=== PATIENT | female | born 1990 | race Caucasian/White ===

== ENCOUNTER 2023-11-11 21:15 | Emergency (ER) | payer MEDICAID, SELFPAY ==
--- NOTE | 2023-11-11 | ECG_ITS ---
Test Reason : chest pain Blood Pressure : / mmHG Vent. Rate : 076 BPM Atrial Rate : 076 BPM P-R Int : 148 ms QRS Dur : 082 ms QT Int : 370 ms P-R-T Axes : 058 048 038 degrees QTc Int : 416 ms Normal sinus rhythm Normal ECG No previous ECGs available Referred By: Generic ED Physician Electronically Signed By:CHLOÉ PALM MD
[2023-11-11 21:20] VITALS: BP 142/83; PULSE 78; RESP 20; TEMP 36.8; O2SAT 100; BMI 29.7
[2023-11-11 21:49] LABS: MANUAL DIFF FLAG NO
[2023-11-11 21:50] LABS: Basophils Percent Auto 0.5 % (0-2); Eosinophils Absolute Auto 0.1 X10*3/uL (0.0-0.4); Eosinophils Percent Auto 0.9 % (0-4); Hematocrit 36.8 % (37.0-47.0); Imm Gran Abs Auto 0.02 X10*3/uL (0.00-0.03); Imm Gran Pct Auto 0.2 % (0.0-0.4); Lymphocytes Absolute Auto 2.6 X10*3/uL (1.2-4.9); Lymphocytes Percent Auto 30.2 % (20-40); Mean Corpuscular HGB Conc 32.6 g/dl (31.0-35.0); Mean Corpuscular Volume 79.7 fL (80.0-98.0); Mean Platelet Volume 9.7 fL (9.4-12.3); Monocytes Absolute Auto 0.6 X10*3/uL (0.1-1.2); Monocytes Percent Auto 6.5 % (2-11); Neutrophils Absolute Auto 5.3 x10*3/uL (2.0-8.3); Neutrophils Percent Auto 61.7 % (45-73); Platelet Count 237 X10*3/uL (160-400); Red Blood Count 4.62 X10*6/uL (4.20-5.50); Red Cell Distribution Width 13.3 % (11.0-16.0); White Blood Count 8.6 X10*3/uL (4.8-10.8)
[2023-11-11 22:13] LABS: Anion Gap 12 (12-20); Blood Urea Nitrogen 22 mg/dL (9-16); Calcium 9.1 mg/dL (8.4-10.2); Carbon Dioxide 24 mmol/L (22-29); Chloride 109 mmol/L (96-108); Creatinine Clr Calc Pharmacy 108.3; Estimated Glomerular Filt Rate > 60; Glucose Random 71 mg/dL (60-115); Potassium 3.8 mmol/L (3.3-5.1); Sodium 141 mmol/L (135-145)
[2023-11-11 22:32] LABS: Troponin-I High Sensitivity < 2.7 ng/L (<3.5-17.0)
--- OUTSIDE RECORDS SUMMARY | 2023-11-11 23:40 | XMS_ITS | Continuity of Care Document ---
Author Name Unknown Organization [facility] Address Unknown Care Team Providers Care Psych Arnp Name Role Phone Not on Staff, PCP Primary Care Physician Unavail able Encounter [facility] Date(s): 06/24/21 - 07/24/21 [facility] Allergies, Adverse Reactions, Alerts Substance Reaction Severity Status NKA Active Immunizations Given and Recorded Vaccine Date Status Refusal Reason tetanus/diphtheria/pertussis, acel(Tdap) 10/13/19 Given influenza virus vaccine, inactivated 1 08/25/19 Gi lyle 1Result Comment: [facility] 10420-730-77 Medications Colace sodium 100 mg oral capsule 100 mg, 1, capsule, By Mouth, 2 times a day, PRN, # 60 capsule, Refills 1, Tot. Refills 1, Maintenance, for constipation, 12/27/19 12:50:00 EDT, [id number], 154, cm, 12/27/19 8:19:00 EDT, Height, 97.27, kg, 03... Start Date: 12/27/19 Status: Ordered ferrous sulfate 325 mg oral tablet See Instructions, TAKE 1 TABLET BY MOUTH TWICE A DAY, # 60 tablet, 1 Refills, Maintenance, [facility], 154, cm, 04/16/20 13:02:00 EDT, Height, 81.66, kg, 04/16/20 13:02:00 EDT, Dry Weight Start Date: 01/03/21 Status: Ordered ibuprofen 600 mg oral tablet 600 mg, 1, tablet, By Mouth, Every 6 hours, # 40 tablet, Refills 1, Tot. Refills 1, Maintenance, 12/27/19 12:50:00 EDT, Route to Pharmacy Electronically, [facility][id number], 154, cm, 12/27/19 8:19:00EDT, Height, 97.27, kg, 12/25/19 8:31:00 EDT, Dry W... Start Date: 12/27/19 Status: Ordered Multivitamins with Folic Acid 1 mg oral tablet 1 tablet, By Mouth, Daily, # 100 tablet, 1 Refills, Maintenance, 12/27/19 12:50:00 EDT, Tablet, [facility]acy [facility][id number], 1 tablet By Mouth Daily, 154, cm, 12/27/19 8:19:00 EDT, Height, 97.27, kg, 208:31:00 EDT, Dry Weight Start Date: 12/27/19 Status: Ordered Tylenol 325 mg oral tablet 650 mg, 2, tablet, By Mouth, Every 6 hours, PRN, # 60 tablet, Refills 1, Tot. Refills 1, Maintenance, for pain, 12/27/19 12:50:00 EDT, Route to Pharmacy Electronically, [facility]/pharmacy [facility][id number], 154, cm, 12/27/19 8:19:00 EDT, Height, 97.27, kg, 12/25/19 8:3... Start Date: 12/27/19 Status: Ordered Xulane 150 mcg-35 mcg/24 hr transdermal film, extended release See Instructions, 1 patch Topically, # 3 each, 1 Refills, Maintenance, 07/03/21 14:38:00 EDT, [facility]acy [facility][id number], 1 patch Topically, 154, cm, 04/16/20 13:02:00 EDT, Height, 81.66, kg, 04/16/20 13:02:00 EDT, Dry Weight Start Date: 07/03/21 Status: Ordered Problem List Condition Effective Dates Status Health Status Inform ant Anemia(Confirmed) Active BMI 27.0-27.9,adult(Confirmed) Active Elevated blood pressure reading(Confirmed) Active Exposure to hepatitis C(Confirmed) Active H/O section(Confirmed) Active H/O small bowel obstruction(Confirmed) Active Non-Armenian speaking patient(Confirmed) Active Hair loss(Confirmed) Active (Confirmed) Active Social History Social History Type Response Smoking Status Never (less than 100 in lifetime); Tobacco user in household: Yes entered on: 05/30/19 Sex
--- OUTSIDE RECORDS SUMMARY | 2023-11-11 23:40 | XMS_ITS | Continuity of Care Document ---
Author Name Unknown Organization [facility] Address [address] [place] [address], [address] [place] [address]- Care Team Providers Care Bell Ringer Name Role Phone Not on Staff, PCP Primary Care Physician Unavail able Encounter [facility] Date(s): 12/12/19 - 12/19/19 [facility] [address] [facility] [address], [address] [place] [address]- Attending Physician: Tara Travis MD Referring Physician: Gregoria Pfeiffer CNM Allergies, Adverse Reactions, Alerts Substance Reaction Severity Status NKA Active Immunizations Given and Recorded Vaccine Date Status Refusal Reason tetanus/diphtheria/pertussis, acel(Tdap) 10/13/19 Given influenza virus vaccine, inactivated 1 08/25/19 Gi lyle 1Result Comment: [facility] 51217-851-61 Medications aspirin 81 mg oral tablet 1 tablet = 81 mg, By Mouth, Daily, # 30 tablet, 9 Refills, Maintenance, 06/28/19 18:58:47 EDT, Tablet Start Date: 06/28/19 Stop Date: 04/23/20 Status: Ordered clotrimazole 1% topical cream 1 application, Topically, 2 times a day, apply twice a day, # 24 Gm, 0 Refills, Maintenance, 11/10/19 16:39:00 EST, Cream, [facility] [address], 1 application Topically 2 times a day,Instr:apply twice a day, 154, cm, 11/10/19 16:27:00 EST, Height,... Start Date: 11/10/19 Status: Ordered ferrous sulfate 325 mg oral enteric coated tablet 325 mg, 1, tablet, By Mouth, Daily, may take with food to minimize abdominal discomfort, # 30 tablet, Refills 11, Tot. Refills 11, Maintenance, 06/28/19 15:45:56 EDT, [id number] - [address] [place] [address] Start Date: 06/28/19 Stop Date: 06/22/20 Status: Ordered Plus Iron oral tablet 1 tablet, By Mouth, Daily, # 30 tablet, 11 Refills, Maintenance, 06/28/19 16:33:37 EDT, 1 tablet ByMouth Daily,x30 days Start Date: 06/28/19 Stop Date: 06/22/20 Status: Ordered Selsun Blue Balanced Treatment 1% shampoo 1 applicator, Topically, Daily, Apply to forearm and rinse after 5 minutes, # 118 mL, 0 Refills, Maintenance, 12/04/19 16:39:00 EST, [id number], 1 applicator Topically Daily,Instr:Apply to forearm and rinse after 5 minutes, 154, cm, 0... Start Date: 12/04/19 Status: Ordered Tums 500 mg oral tablet, chewable 500 mg, 1, tablet, Chew, 2 times a day, PRN, # 60 tablet, Refills 1, Tot. Refills 1, Maintenance, as needed for dyspepsia, 09/22/19 16:55:31 EST, Route to Pharmacy Electronically, [facility] - [address] [place] [address], 154, cm, 09/22/19 16:22:34 EST, Height, 69, k... Start Date: 09/22/19 Status: Ordered Problem List Condition Effective Dates Status Health Status Inform ant Anemia(Confirmed) Active BMI 27.0-27.9,adult(Confirmed) Active Elevated blood pressure reading(Confirmed) Active Exposure to hepatitis C(Confirmed) Active H/O section(Confirmed) Active H/O small bowel obstruction(Confirmed) Active Non-Romanian speaking patient(Confirmed) Active Hair loss(Confirmed) Active (Confirmed) Active Social History Social History Type Response Smoking Status Never (less than 100 in lifetime); Tobacco user in household: Yes entered on: 05/30/19 Sex
--- OUTSIDE RECORDS SUMMARY | 2023-11-11 23:40 | XMS_ITS | Continuity of Care Document ---
Author Name Unknown [facility] Address [address] [place] [address], [address] [place] [address]- Care Team Providers Care Putty And Patch Worker Name Role Phone Not on Staff, PCP Primary Care Physician Unavail able En[place] [facility] Date(s): 12/12/19 - 12/19/19 [facility] [address] [facility], [address] [place] [address]- Attending Physician: Regina An MD Referring Physician: Gregoria Pfeiffer CNM Allergies, Adverse Reactions, Alerts Substance Reaction Severity Status NKA Active Immunizations Given and Recorded Vaccine Date Status Refusal Reason tetanus/diphtheria/pertussis, acel(Tdap) 10/13/19 Given influenza virus vaccine, inactivated 1 08/25/19 Gi lyle 1Result Comment: [facility] 34051-775-66 Medications aspirin 81 mg oral tablet 1 [...] 06/28/19 15:45:56 EDT, Route to Pharmacy Electronically, [id number] [address] [facility] Start Date: 06/28/19 Stop Date: 06/22/20 Status: [...] mL, 0 Refills, Maintenance, 12/04/19 16:39:00 EST, [id number], 1 applicator Topically Daily,Instr:Apply to forearm and rinse after 5 minutes, 154, cm, 0... Start Date: 12/04/19 Status: Ordered Tums 500 mg oral tablet, chewable 500 mg, 1, tablet, Chew, 2 times a day, PRN, # 60 tablet, Refills 1, Tot. Refills 1, Maintenance, as needed for dyspepsia, 09/22/19 16:55:31 EST, Route to Pharmacy Electronically, [facility] - [address] [place] [address], 154, cm, 09/22/19 16:22:34 EST, Height, 69, k... Start Date: 09/22/19 Status: Ordered Problem List Condition Effective Dates Status Health Status Inform ant Anemia(Confirmed) Active BMI 27.0-27.9,adult(Confirmed) Active Elevated blood pressure reading(Confirmed) Active Exposure to hepatitis C(Confirmed) Active H/O section(Confirmed) Active H/O small bowel obstruction(Confirmed) Active Non-Nicaraguan speaking patient(Confirmed) Active Hair loss(Confirmed) Active (Confirmed) Active Social History Social History Type Response Smoking Status Never (less than 100 in lifetime); Tobacco user in household: Yes entered on: 05/30/19 Sex
--- OUTSIDE RECORDS SUMMARY | 2023-11-11 23:40 | XMS_ITS | Continuity of Care Document ---
Author Name Unknown Organization [facility] Address [address], [address] [place] [address]- Care Team Providers Care Supervisor Printing Shop Name Role Phone Not on Staff, PCP Primary Care Physician Unavail able Encounter [facility] Date(s): 12/07/22 - 01/06/23 [facility] [address], [address] [place], [place] [address] Allergies, Adverse Reactions, Alerts No Known Allergies Immunizations Given and Recorded Vaccine Date Status Refusal Reason tetanus/diphtheria/pertussis, acel(Tdap) 10/13/19 Given influenza virus vaccine, inactivated 1 08/25/19 Gi lyle 1Result Comment: [facility] [id number] Medications Colace sodium 100 mg oral capsule 100 mg, 1, capsule, By Mouth, 2 times a day, PRN, # 60 capsule, Refills 1, Tot. Refills 1, Maintenance, for constipation, 12/27/19 12:50:00 EDT, Route to Pharmacy Electronically, [facility]/pharmacy #[id number], 154, cm, 12/27/19 8:19:00 EDT, Height, 97.27, kg, 03... Start Date: 12/27/19 Status: Ordered ferrous sulfate 325 mg oral tablet See Instructions, TAKE 1 TABLET BY MOUTH TWICE A DAY, # 60 tablet, 1 Refills, Maintenance, [id number], 154, cm, 04/16/20 13:02:00 EDT, Height, 81.66, kg, 04/16/20 13:02:00 EDT, Dry Weight Start Date: 01/03/21 Status: Ordered ibuprofen 600 mg oral tablet 600 mg, 1, tablet, By Mouth, Every 6 hours, # 40 tablet, Refills 1, Tot. Refills 1, Maintenance, 12/27/19 12:50:00 EDT, Route to Pharmacy Electronically, [facility]/pharmacy #[id number], 154, cm, 12/27/19 8:19:00EDT, Height, 97.27, kg, 12/25/19 8:31:00 EDT, Dry W... Start Date: 12/27/19 Status: Ordered Paragard IUD See Instructions, # 1 each, Maintenance, bring to office for insertion, 11/26/21 17:27:00 EST, Supply, 154, cm, 11/26/21 16:40:00 EST, Height, 78.7, kg, 11/26/21 16:40:00 EST, Dry Weight Start Date: 11/26/21 Status: Ordered Multivitamins with Folic Acid 1 mg oral tablet 1 tablet, By Mouth, Daily, # 100 tablet, 1 Refills, Maintenance, 12/27/19 12:50:00 EDT, Tablet, [facility]/pharmacy #[id number], 1 tablet By Mouth Daily, 154, cm, 12/27/19 8:19:00 EDT, Height, 97.27, kg, :31:00 EDT, Dry Weight Start Date: 12/27/19 Status: Ordered Tylenol 325 mg oral tablet 650 mg, 2, tablet, By Mouth, Every 6 hours, PRN, # 60 tablet, Refills 1, Tot. Refills 1, Maintenance, for pain, 12/27/19 12:50:00 EDT, Route to Pharmacy Electronically, [facility]/pharmacy #[id number], 154, cm, 12/27/19 8:19:00 EDT, Height, 97.27, kg, 12/25/19 8:3... Start Date: 12/27/19 Status: Ordered Natalie By Mouth, Daily, 0 Refills, Maintenance, 12/11/22 11:50:00 EST, Partial fill upon patient request if the prescription is for a schedule II opioid drug. Start Date: 12/11/22 Status: Ordered Natalie 3 mg-0.03 mg oral tablet 1 tablet, By Mouth, Daily, # 84 tablet, 4 Refills, Maintenance, 12/11/22 12:09:00 EST, Tablet, [facility]/pharmacy #[id number], Partial fill upon patient request if the prescription is for a schedule II opioid drug., 1 tablet By Mouth Daily, 154, cm, 12/11/22 11:4... Start Date: 12/11/22 Status: Ordered Problem List Condition Confirmation Course Effective Dates Status Health St atus Informant Anemia Confirmed Active BMI 27.0-27.9,adult Confirmed Active Elevated blood pressure reading Confirmed Active Exposure to hepatitis C Confirmed Active H/O section Confirmed Active H/O small bowel obstruction Confirmed Active Non-Upper Sorbian speaking patient Confirmed Active Hair loss Confirmed Active Obese class I Confirmed Active Confirmed Active Social History Social History Type Response Smoking Status Never (less than 100 in lifetime); Tobacco user in household: Yes entered on: 05/30/19 Sex Patient Care team information Care Team Personnel Name: Not on Staff, PCP Position: [facility] Physician (General Medicine) Member Role: PCP Care Team Related Persons Name: JULESAnayJANICETRINH CARIAS Address: Address: home [address] [place] [address] [place] Name: ROMAIN ANGEL Address: home [address] [place] [address]
--- OUTSIDE RECORDS SUMMARY | 2023-11-11 23:40 | XMS_ITS | Continuity of Care Document ---
Author Name Unknown Organization [facility] Address [address] [place] [address]- Care Team Providers Care Nursery School Teacher Name Role Phone Not on Staff, PCP Primary Care Physician Unavail able Encounter [facility] Date(s): 12/11/19 - 01/12/20 [facility] and [address] [address]- [facility] Attending Physician: Not on Staff, Attending MD Referring Physician: Stephani Vazquez CNM Allergies, Adverse Reactions, Alerts Substance Reaction Severity Status NKA Active Immunizations Given and Recorded Vaccine Date Status Refusal Reason tetanus/diphtheria/pertussis, acel(Tdap) 10/13/19 Given influenza virus vaccine, inactivated 1 08/25/19 Gi lyle 1Result Comment: [facility] 63502-056-95 Medications clotrimazole 1% topical cream 1 application, Topically, 2 times a day, apply twice a day, # 24 Gm, 0 Refills, Maintenance, 11/10/19 16:39:00 EST, Cream, [facility] [address] [facility], 1 application Topically 2 times a day,Instr:apply twice a day, 154, cm, 11/10/19 16:27:00 EST, Height,... Start Date: 11/10/19 Status: Ordered Colace sodium 100 mg oral capsule 100 mg, 1, capsule, By Mouth, 2 times a day, PRN, # 60 capsule, Refills 1, Tot. Refills 1, Maintenance, for constipation, 12/27/19 12:50:00 EDT, Route to Pharmacy Electronically, [facility]/pharmacy #[id number], 154, cm, 12/27/19 8:19:00 EDT, Height, 97.27, kg, 03... Start Date: 12/27/19 Status: Ordered ferrous sulfate 325 mg oral tablet 1 tablet = 325 mg, By Mouth, 2 times a day, # 60 tablet, 1 Refills, Maintenance, 12/27/19 12:50:00 EDT, Tablet, [facility]/pharmacy #[id number], 154, cm, 12/27/19 8:19:00 EDT, Height, 97.27, kg, 12/25/19 8:31:00 EDT, Dry Weight Start Date: 12/27/19 Status: Ordered ibuprofen 600 mg oral tablet 600 mg, 1, tablet, By Mouth, Every 6 hours, # 40 tablet, Refills 1, Tot. Refills 1, Maintenance, 12/27/19 12:50:00 EDT, Route to Pharmacy Electronically, [facility]/pharmacy #[id number], 154, cm, 12/27/19 8:19:00EDT, Height, 97.27, kg, 12/25/19 8:31:00 EDT, Dry W... Start Date: 12/27/19 Status: Ordered oxyCODONE 5 mg oral tablet 5 mg, 1, tablet, By Mouth, Every 6 hours, PRN, for post-op pain, # 20 tablet, Refills 0, Tot. Refills 0, Maintenance, for pain, 12/27/19 12:50:00 EDT, Route to Pharmacy Electronically, [facility]/pharmacy #[id number], Partial fill upon patient request, 154, cm, 03... Start Date: 12/27/19 Status: Ordered Multivitamins with Folic Acid 1 mg oral tablet 1 tablet, By Mouth, Daily, # 100 tablet, 1 Refills, Maintenance, 12/27/19 12:50:00 EDT, Tablet, [facility]/pharmacy #[id number], 1 tablet By Mouth Daily, 154, cm, 12/27/19 8:19:00 EDT, Height, 97.27, kg, :31:00 EDT, Dry Weight Start Date: 12/27/19 Status: Ordered Plus Iron oral tablet 1 tablet, By Mouth, Daily, # 30 tablet, 11 Refills, Maintenance, 06/28/19 16:33:37 EDT, 1 tablet ByMouth Daily,x30 days Start Date: 06/28/19 Stop Date: 06/22/20 Status: Ordered Selsun Blue Balanced Treatment 1% shampoo 1 applicator, Topically, Daily, Apply to forearm and rinse after 5 minutes, # 118 mL, 0 Refills, Maintenance, 12/04/19 16:39:00 EST, [id number], 1 applicator Topically Daily,Instr:Apply to forearm and rinse after 5 minutes, 154, cm, 0... Start Date: 12/04/19 Status: Ordered Tylenol 325 mg oral tablet 650 mg, 2, tablet, By Mouth, Every 6 hours, PRN, # 60 tablet, Refills 1, Tot. Refills 1, Maintenance, for pain, 12/27/19 12:50:00 EDT, Route to Pharmacy Electronically, [facility]/pharmacy #[id number], 154, cm, 12/27/19 8:19:00 EDT, Height, 97.27, kg, 12/25/19 8:3... Start Date: 12/27/19 Status: Ordered Problem List Condition Effective Dates Status Health Status Inform ant Anemia(Confirmed) Active BMI 27.0-27.9,adult(Confirmed) Active Elevated blood pressure reading(Confirmed) Active Exposure to hepatitis C(Confirmed) Active H/O section(Confirmed) Active H/O small bowel obstruction(Confirmed) Active Non-Zimbabwean speaking patient(Confirmed) Active Hair loss(Confirmed) Active (Confirmed) Active Social History Social History Type Response Smoking Status Never (less than 100 in lifetime); Tobacco user in household: Yes entered on: 05/30/19 Sex
--- OUTSIDE RECORDS SUMMARY | 2023-11-11 23:40 | XMS_ITS | Continuity of Care Document ---
Author Name Unknown Organization [facility] Address [address] [place] [id number]- Care Team Providers Care Psychiatric Nurse Name Role Phone Not on Staff, PCP Primary Care Physician Unavail able Encounter [facility] Date(s): 02/01/23 - 02/01/[address] [address]- Encounter Diagnosis Lymphedema of arm(Final) - 02/01/23 Discharge Disposition: A-D/C Home Attending Physician: Sina Yoo MD Admitting Physician: Sina Yoo MD Referring Physician: Not on Staff, Referring MD Allergies, Adverse Reactions, Alerts No Known Allergies Immunizations Given and Recorded Vaccine Date Status Refusal Reason tetanus/diphtheria/pertussis, acel(Tdap) 10/13/19 Given influenza virus vaccine, inactivated 1 08/25/19 Gi lyle 1Result Comment: [facility] 03874-799-91 Medications Colace sodium 100 mg oral capsule 100 mg, 1, capsule, By Mouth, 2 times a day, PRN, # 60 capsule, Refills 1, Tot. Refills 1, Maintenance, for constipation, 12/27/19 12:50:00 EDT, Route to Pharmacy Electronically, [facility]/pharmacy #[id number], 154, cm, 12/27/19 8:19:00 EDT, Height, 97.27, kg, 03... Start Date: 12/27/19 Status: Ordered ferrous sulfate 325 mg oral tablet See Instructions, TAKE 1 TABLET BY MOUTH TWICE A DAY, # 60 tablet, 1 Refills, Maintenance, [facility] STORE [id number], 154, cm, 04/16/20 13:02:00 EDT, Height, 81.66, kg, 04/16/20 13:02:00 EDT, Dry Weight Start Date: 01/03/21 Status: Ordered ibuprofen 600 mg oral tablet 600 mg, 1, tablet, By Mouth, Every 6 hours, # 40 tablet, Refills 1, Tot. Refills 1, Maintenance, 12/27/19 12:50:00 EDT, Route to Pharmacy Electronically, [facility]/pharmacy #[id number], 154, cm, 12/27/19 8:19:00EDT, Height, 97.27, [...] 1 Refills, Maintenance, 12/27/19 12:50:00 EDT, [facility], 1 tablet By Mouth Daily, 154, cm, 12/27/19 8:19:00 EDT, Height, 97.27, kg, :31:00 EDT, Dry Weight Start Date: 12/27/19 Status: Ordered Tylenol 325 mg oral tablet 650 mg, 2, tablet, By Mouth, Every 6 hours, PRN, # 60 tablet, Refills 1, Tot. Refills 1, Maintenance, for pain, 12/27/19 12:50:00 EDT, [id number], 154, cm, 12/27/19 8:19:00 EDT, Height, [...] 4 Refills, Maintenance, 12/11/22 12:09:00 EST, Tablet, [id number], Partial fill upon patient request if [...] Active H/O small bowel obstruction Confirmed Active Non-Turkmen speaking patient Confirmed Active Hair loss Confirmed Active Confirmed Active Results Radiology Reports * Exam Date Time Procedure Performing Provider Status 02/01/23 6:40 PM US Doppler Ext Upper Venous Left Chantale Webster; Auth (Verified) Notes: (US Doppler Ext Upper Venous Left) Reason For Exam: Pain in limb;Other: RESULT: US Doppler Ext Upper Venous Left US Doppler Ext Upper Venous Left Hx of Present Illness: pt had liposuction on bilaterally arms with incisions up to axillary area inoct 2021, presents with increased swelling on left hand and 8 10 pain. Incision clean, dry with no signs of infection. denies fever chills; Reason: Other:; Pain in limb; Clinical Question(s): Thrombosis COMPARISON: None. IMAGING TECHNIQUE: Ultrasound examination of the upper extremity deep venous system was performed using grayscale, color, and spectral wave analysis including response to compression. Assessment includes the contralateral jugular and subclavian vein. FINDINGS: Internal jugular vein: Patent. No thrombosis. Subclavian vein: Patent. No thrombosis. Axillary vein: Patent. No thrombosis. Brachial vein: Patent. No thrombosis. Basilic vein: Patent. No thrombosis. Cephalic vein: Patent. No thrombosis. Contralateral internal jugular vein: Patent. No thrombosis. Contralateral subclavian vein: Patent. No thrombosis. IMPRESSION: No evidence of venous thrombosis. WSN: [id number] Ordering Physician: Pili Bernard Dictated By: John Maldonado MD Dictated Date/Time: 02/01/23 6:47 pm Reviewed By: John Maldonado MD Signed By: John Maldonado MD Signed Date/Time: 02/01/23 6:47 pm Transcribed By: JAIDA Transcribed Date/Time: 02/01/23 6:46 pm Vital Signs Most recent to oldest [Reference Range]: 1 2 3 Height 155 cm (02/01/23 7:26 PM) 155 cm (02/01/23 11:16 AM) Weight 68 kg (02/01/23:26 PM) 68 kg (02/01/23 11:16 AM) Oxygen Saturation [94-100 %] 100 % (02/01/23 7:26 PM) 100 % (02/01/23 2:20 PM) 100 % (02/01/23 12:09 PM) Pulse Rate [55-90 bpm] 71 bpm (02/01/23 7:26 PM) 77 bpm (02/01/23 2:20 PM) 73 bpm (02/01/23 12:09 PM) Body Mass Index [18.5-24.99 kg/m2] 28.3 kg/m2 *H* (02/01/23: PM) Blood Pressure [90-138/55-84 mm Hg] 124/77mm Hg (02/01/23 7:26 PM) 127/79mm Hg (02/01/23 2:20 PM) 128/77mm Hg (02/01/23 12:09 PM) Respiratory Rate [16-30 br/min] 18 br/min (02/01/23 7:26 PM) 18 br/min (02/01/23 2:20 PM) 18 br/min (02/01/23 12:09 PM) Temperature [96.8-100.4 DegF] 98.0 DegF (02/01/23 7:26 PM) 98.6 DegF (02/01/23 2:20 PM) 98.5 DegF (02/01/23 12:09 PM) Mode of Delivery (Oxygen) Room air (02/01/23 7:26 PM) Room air (02/01/23 2:20 PM) Room air (02/01/23 12:09 PM) Blood pressure sites Arm, right (02/01/23 7:26 PM) Arm, right (02/01/23 2:20 PM) Arm, right (02/01/23 12:09 PM) Temperature Route Oral (02/01/23 7:26 PM) Oral (02/01/23 2:20 PM) Oral (02/01/23 12:09 PM) Dry Weight 68 kg (4/24/23 7:26 PM) 68 kg (02/01/23 11:16 AM) Weight Obtained Via Patient/family state d (02/01/23 11:16 AM) Dry Weight Obtained Via Patient lift herndon ging scale (02/01/23 11:16 AM) Social History Social History Type Response Smoking Status Never (less than 100 in lifetime); Tobacco user in household: Yes entered on: 05/30/19 Sex Note * Joana TAFOYA, Pili Trinidad: PERFORM Event Display: Patient Education Leaflets Authored Date: [id number] Lymphedema ?? [id number] Lymphedema The lymphatic system is made up of lymph vessels and lymph nodes, which carry a fluid called??lymph.??Lymph consists of waste from the cells. This fluid drains through lymph vessels under the skin tonearby lymph nodes. Lymph nodes filter waste products from the cells. They kill any bacteria present before returning the lymph fluid to your blood circulation. When the lymph vessels are damaged,??lymph fluid can't drain from tissues.??This causes the lymph fluid to back up, causing swelling. This most often affects the arms or legs. Signs of lymphedema include heaviness, stiffness, or aching in an arm or leg.??The limb may swell.??The skin might look red. Shoes and rings may feel tight. Ankles and wrists might become less flexible. The most common cause of damage to the lymph system is surgery or radiation for breast or testicular cancer. Other causes include repeated skin infections (cellulitis), ulloa, or injury to the arms or legs. It can take many years for symptoms of lymphedema to appear. Once present, lymphedema can become an ongoing (chronic) condition.??This means the problem can be managed but not cured.?? Treatment often includes using compression garments, getting massage, and doing special exercises. Talk with your healthcare provider about these treatments and the best treatment plan for you. Ask your healthcare provider about a referral to a certified lymphedema therapist. This is a provider whospecializes in lymphedema teaching and management. Home care You can help keep the condition from getting worse. Follow all instructions you have been given. Doyour exercises and wear your compression garments as recommended. Also, care for yourself as advised by your healthcare provider.? Be careful with your skin. Small skin injuries like a cut, burn, or insect bite are more likelyto cause a skin infection. Take special care to not get injured.??If you have any signs of infection, call your healthcare provider right away. ??? Take care of your skin and nails. Use a moisturizeron dry skin. Wear protective gloves when doing chores, such as gardening.? Don't wear tight clothing or jewelry on the affected arm or leg. Don't carry bags or other weight with the affected arm. ??? Shave with an electric razor instead of a razor blade. ??? If at all possible, don???t have blood pressure taken, get shots, or have blood drawn in the affected arm. ??? If a leg is involved, don ???t cross your legs when sitting. Don't go barefoot. ??? Don't use hot tubs, steam rooms, or saunas. If you are at risk for lymphedema but have not developed it, these tips can help also help prevent it. Follow your healthcare provider's instructions. ?? Follow-up care Follow up with your healthcare provider, or as advised. Lymphedema??can change??the appearance of your body. This can be emotionally difficult to adjust to. You may benefit from a support group where practical advice and emotional support is offered. Alsoconsider getting one-on-one counseling. ?? When to get medical advice Call your healthcare provider right away if any of the following occur: ??? Swelling gets worse ???Rash, blistering, or other skin changes on the affected limb ??? Area of skin becomes red, painful,or warm to the touch ??? A wound increases in pain, becomes warm, drains pus, or sends out red streaks ??? Fever of 100.4??F (38??C) or higher, or as directed by your healthcare provider ?? Last Reviewed Date: 2022 ?? [id number] The [employer]. All rights reserved. This information is not intended as a substitute for professional medical care. Always follow your healthcare professional's instructions. ?? * BHSPowertatum , CIS S: TRANSCRIELVIN Maldonado MD, Devrim: VERIFY Event Display: Result: Authored Date: [id number] US Doppler Ext Upper Venous Left Hx of Present Illness: pt had liposuction on bilaterally arms with incisions up to axillary area inoct 2021, presents with increased swelling on left hand and 8 10 pain. Incision clean, dry with no signs of infection. denies fever chills; Reason: Other:; Pain in limb; Clinical Question(s): Thrombosis COMPARISON: None. IMAGING TECHNIQUE: Ultrasound examination of the upper extremity deep venous system was performed using grayscale, color, and spectral wave analysis including response to compression. Assessment includes the contralateral jugular and subclavian vein. FINDINGS: Internal jugular vein: Patent. No thrombosis. Subclavian vein: Patent. No thrombosis. Axillary vein: Patent. No thrombosis. Brachial vein: Patent. No thrombosis. Basilic vein: Patent. No thrombosis. Cephalic vein: Patent. No thrombosis. Contralateral internal jugular vein: Patent. No thrombosis. Contralateral subclavian vein: Patent. No thrombosis. IMPRESSION: No evidence of venous thrombosis. WSN: [id number] Ordering Physician: Pili Bernard Dictated By: John Maldonado MD Dictated Date/Time: 02/01/23 6:47 pm Reviewed By: John Maldonado MD Signed By: John Maldonado MD Signed Date/Time: 02/01/23 6:47 pm Transcribed By: JAIDA Transcribed Date/Time: 02/01/23 6:46 pm Patient Care team information Care Team Personnel Name: Not on Staff, PCP Position: [facility] Physician (General Medicine) Member Role: PCP Name: Pili Regalado Position: [facility] Associate Professional Member Role: ED Physician Sandblasting Supervisor Address: Address: [address] [place] [address] [place] [address]- Name: Jen Schroeder RN Position: [facility] ED RN W/OE and Tasks Member Role: Patient Care Provider Care Team Related Persons Name: TRINH EUCEDA Address: [id number] Address: [address] [place] [address] [place] Name: ROMAIN ANGEL Address: [address] [place] [address]
--- OUTSIDE RECORDS SUMMARY | 2023-11-11 23:40 | XMS_ITS | Continuity of Care Document ---
Author Name Unknown Organization [facility] Address [address] [place] [id number]- Care Team Providers Care Undercover Agent Name Role Phone Not on Staff, PCP Primary Care Physician Unavail able [place] [facility] [place]12[place] - 01/19/20 [facility] and [address] [address]- [facility] Attending Physician: Not on Staff, Attending MD Referring Physician: Layne Scott CNM Allergies, Adverse Reactions, Alerts Substance Reaction Severity Status NKA Active Immunizations Given and Recorded Vaccine Date Status Refusal Reason tetanus/diphtheria/pertussis, acel(Tdap) 10/13/19 Given influenza virus vaccine, inactivated 1 08/25/19 Gi lyle 1Result Comment: [facility] [address]126-569-70 Medications clotrimazole 1% topical cream 1 application, Topically, 2 times a day, apply twice a day, # 24 Gm, 0 Refills, Maintenance, 11/10/19 16:39:00 EST, Cream, [facility], 1 application Topically 2 times a day,Instr:apply twice a day, 154, cm, 11/10/19 16:27:00 EST, Height,... Start Date: 11/10/19 Status: Ordered Colace sodium 100 mg oral capsule 100 mg, 1, capsule, By Mouth, 2 times a day, PRN, # 60 capsule, Refills 1, Tot. Refills 1, Maintenance, for constipation, 12/27/19 12:50:00 EDT, Route to Pharmacy Electronically, [facility]/pharmacy #[id number], 154, cm, 12/27/19 8:19:00 EDT, Height, 97.27, kg, 03... Start Date: 12/27/19 Status: Ordered ferrous sulfate 325 mg oral tablet 1 tablet = 325 mg, By Mouth, 2 times a day, # 60 tablet, 1 Refills, Maintenance, 12/27/19 12:50:00 EDT, Tablet, [facility]/pharmacy #[id number], 154, cm, 12/27/19 8:19:00 EDT, Height, 97.27, kg, 12/25/19 8:31:00 EDT, Dry Weight Start Date: 12/27/19 Status: Ordered ibuprofen 600 mg oral tablet 600 mg, 1, tablet, By Mouth, Every 6 hours, # 40 tablet, Refills 1, Tot. Refills 1, Maintenance, 12/27/19 12:50:00 EDT, Route to Pharmacy Electronically, [facility]/pharmacy #2339, 154, cm, 12/27/19 8:19:00EDT, Height, 97.27, kg, 12/25/19 8:31:00 EDT, Dry W... Start Date: 12/27/19 Status: Ordered oxyCODONE 5 mg oral tablet 5 mg, 1, tablet, By Mouth, Every 6 hours, PRN, for post-op pain, # 20 tablet, Refills 0, Tot. Refills 0, Maintenance, for pain, 12/27/19 12:50:00 EDT, Route to Pharmacy Electronically, [facility]/pharmacy #[id number], Partial fill upon patient request, 154, cm, 03... Start Date: 12/27/19 Status: Ordered Multivitamins with Folic Acid 1 mg oral tablet 1 tablet, By Mouth, Daily, # 100 tablet, 1 Refills, Maintenance, 12/27/19 12:50:00 EDT, Tablet, [facility]/pharmacy #2339, 1 tablet By Mouth Daily, [...] mL, 0 Refills, Maintenance, 12/04/19 16:39:00 EST, [facility] #[id number], 1 applicator Topically Daily,Instr:Apply to forearm and rinse after 5 minutes, 154, cm, 0... Start Date: 12/04/19 Status: Ordered Tylenol 325 mg oral tablet 650 mg, 2, tablet, By Mouth, Every 6 hours, PRN, # 60 tablet, Refills 1, Tot. Refills 1, Maintenance, for pain, 12/27/19 12:50:00 EDT, Route to Pharmacy Electronically, [facility]/pharmacy #2339, 154, cm, 12/27/19 8:19:00 EDT, Height, 97.27, kg, 12/25/19 8:3... Start Date: 12/27/19 Status: Ordered Problem List Condition Effective Dates Status Health Status Inform ant Anemia(Confirmed) Active BMI 27.0-27.9,adult(Confirmed) Active Elevated blood pressure reading(Confirmed) Active Exposure to hepatitis C(Confirmed) Active H/O section(Confirmed) Active H/O small bowel obstruction(Confirmed) Active Non-North Korean speaking patient(Confirmed) Active Hair loss(Confirmed) Active (Confirmed) Active Social History Social History Type Response Smoking Status Never (less than 100 in lifetime); Tobacco user in household: Yes entered on: 05/30/19 Sex
--- OUTSIDE RECORDS SUMMARY | 2023-11-11 23:40 | XMS_ITS | Continuity of Care Document ---
Author Name Unknown Organization [facility] Address Unknown Care Team Providers Care Fundraising Sale Representative Name Role Phone Not on Staff, PCP Primary Care Physician Unavail able [place] [facility] [place]/[facility] Attending Physician: Frederic Domínguez Admitting Physician: Frederic Domínguez Referring Physician: Frederic Domínguez Allergies, Adverse Reactions, Alerts No Known Allergies Immunizations Given and Recorded Vaccine Date Status Refusal Reason tetanus/diphtheria/pertussis, acel(Tdap) 10/13/19 Given influenza virus vaccine, inactivated 1 08/25/19 Gi lyle 1Result Comment: [facility] 81743-745-54 Medications Colace sodium 100 mg oral capsule 100 mg, 1, capsule, By Mouth, 2 times a day, PRN, # 60 capsule, Refills 1, Tot. Refills 1, Maintenance, for constipation, 12/27/19 12:50:00 EDT, Route to Pharmacy Electronically, [facility]/pharmacy #[id number], 154, cm, 12/27/19 8:19:00 EDT, Height, 97.27, kg, 03... Start Date: 12/27/19 Status: Ordered ferrous sulfate 325 mg oral tablet See Instructions, TAKE 1 TABLET BY MOUTH TWICE A DAY, # 60 tablet, 1 Refills, Maintenance, [id number], 154, cm, 04/16/20 13:02:00 EDT, Height, 81.66, kg, 04/16/20 13:02:00 EDT, Dry Weight Start Date: 01/03/21 Status: Ordered ibuprofen 600 mg oral tablet 600 mg, 1, tablet, By Mouth, Every 6 hours, # 40 tablet, Refills 1, Tot. Refills 1, Maintenance, 12/27/19 12:50:00 EDT, Route to Pharmacy Electronically, [facility]/pharmacy #[id number], 154, cm, 12/27/19 8:19:00EDT, Height, 97.27, [...] 1 Refills, Maintenance, 12/27/19 12:50:00 EDT, Tablet, [facility]/pharmacy #2339, 1 tablet By Mouth Daily, 154, cm, 12/27/19 8:19:00 EDT, Height, 97.27, kg, 208:31:00 EDT, Dry Weight Start Date: 12/27/19 Status: Ordered Tylenol 325 mg oral tablet 650 mg, 2, tablet, By Mouth, Every 6 hours, PRN, # 60 tablet, Refills 1, Tot. Refills 1, Maintenance, for pain, 12/27/19 12:50:00 EDT, Route to Pharmacy Electronically, [facility]/pharmacy #2339, 154, cm, 12/27/19 8:19:00 EDT, Height, 97.27, kg, 12/25/19 8:3... Start Date: 12/27/19 Status: Ordered Problem List Condition Effective Dates Status Health Status Inform ant Anemia(Confirmed) Active BMI 27.0-27.9,adult(Confirmed) Active Elevated blood pressure reading(Confirmed) Active Exposure to hepatitis C(Confirmed) Active H/O section(Confirmed) Active H/O small bowel obstruction(Confirmed) Active Non-Beninese speaking patient(Confirmed) Active Hair loss(Confirmed) Active Obese class I(Confirmed) Active (Confirmed) Active Social History Social History Type Response Smoking Status Never (less than 100 in lifetime); Tobacco user in household: Yes entered on: 05/30/19 Sex
--- OUTSIDE RECORDS SUMMARY | 2023-11-11 23:40 | XMS_ITS | Continuity of Care Document ---
Author Name Unknown Organization [facility] Address [address] [place] [address]- Care Team Providers Care Property Management Bookkeeper Name Role Phone Not on Staff, PCP Primary Care Physician Unavail able Encounter [facility] Date(s): 01/12/20 - 01/22/20 [facility] and [address] [address]- [facility] Attending Physician: Frederic Domínguez Admitting Physician: AdmtrFrederic Referring Physician: AdmtrFrederic Allergies, Adverse Reactions, Alerts Substance Reaction Severity Status NKA Active Immunizations Given and Recorded Vaccine Date Status Refusal Reason tetanus/diphtheria/pertussis, acel(Tdap) 10/13/19 Given influenza virus vaccine, inactivated 1 08/25/19 Gi lyle 1Result Comment: [facility] [address]69-205-65 Medications clotrimazole 1% topical cream 1 application, Topically, 2 times a day, apply twice a day, # 24 Gm, 0 Refills, Maintenance, 11/10/19 16:39:00 EST, Cream, [facility], 1 application Topically 2 times a day,Instr:apply twice a day, 154, cm, 11/10/19 16:27:00 EST, Height,... Start Date: 11/10/19 Status: Ordered Colace sodium 100 mg oral capsule 100 mg, 1, capsule, By Mouth, 2 times a day, PRN, # 60 capsule, Refills 1, Tot. Refills 1, Maintenance, for constipation, 12/27/19 12:50:00 EDT, Route to Pharmacy Electronically, [facility]/pharmacy #2339, 154, cm, 12/27/19 8:19:00 EDT, Height, 97.27, kg, 03... Start Date: 12/27/19 Status: Ordered ferrous sulfate 325 mg oral tablet 1 tablet = 325 mg, By Mouth, 2 times a day, # 60 tablet, 1 Refills, Maintenance, 12/27/19 12:50:00 EDT, Tablet, [facility]/pharmacy #2339, 154, cm, 12/27/19 8:19:00 EDT, Height, 97.27, kg, 12/25/19 8:31:00 EDT, Dry Weight Start Date: 12/27/19 Status: Ordered ibuprofen 600 mg oral tablet 600 mg, 1, tablet, By Mouth, Every 6 hours, # 40 tablet, Refills 1, Tot. Refills 1, Maintenance, 12/27/19 12:50:00 EDT, Route to Pharmacy Electronically, [facility]/pharmacy #2339, 154, cm, 12/27/19 8:19:00EDT, Height, 97.27, kg, 12/25/19 8:31:00 EDT, Dry W... Start Date: 12/27/19 Status: Ordered oxyCODONE 5 mg oral tablet 5 mg, 1, tablet, By Mouth, Every 6 hours, PRN, for post-op pain, # 20 tablet, Refills 0, Tot. Refills 0, Maintenance, for pain, 12/27/19 12:50:00 EDT, Route to Pharmacy Electronically, [facility]/pharmacy #2339, Partial fill upon patient request, 154, cm, 03... Start Date: 12/27/19 Status: Ordered Multivitamins with Folic Acid 1 mg oral tablet 1 tablet, By Mouth, Daily, # 100 tablet, 1 Refills, Maintenance, 12/27/19 12:50:00 EDT, Tablet, [facility]/pharmacy #2339, 1 tablet By Mouth Daily, 154, cm, 12/27/19 8:19:00 EDT, Height, 97.27, kg, :31:00 EDT, Dry Weight Start Date: 12/27/19 Status: Ordered Plus Iron oral tablet 1 tablet, By Mouth, Daily, # 30 tablet, 11 Refills, Maintenance, 06/28/19 16:33:37 EDT, 1 tablet ByMduth Daily,x30 days Start Date: 06/28/19 Stop Date: 06/22/20 Status: Ordered Selsun Blue Balanced Treatment 1% shampoo 1 applicator, Topically, Daily, Apply to forearm and rinse after 5 minutes, # 118 mL, 0 Refills, Maintenance, 12/04/19 16:39:00 EST, [id number], 1 applicator Topically Daily,Instr:Apply to forearm and rinse after 5 minutes, 154, cm, 0... Start Date: 12/04/19 Status: Ordered Tylenol 325 mg oral tablet 650 mg, 2, tablet, By Mouth, Every 6 hours, PRN, # 60 tablet, Refills 1, Tot. Refills 1, Maintenance, for pain, 12/27/19 12:50:00 EDT, Route to Pharmacy Electronically, [facility]/pharmacy #2339, 154, cm, 12/27/19 8:19:00 EDT, Height, 97.27, kg, 12/25/19 8:3... Start Date: 12/27/19 Status: Ordered Problem List Condition Effective Dates Status Health Status Inform ant Anemia(Confirmed) Active BMI 27.0-27.9,adult(Confirmed) Active Elevated blood pressure reading(Confirmed) Active Exposure to hepatitis C(Confirmed) Active H/O section(Confirmed) Active H/O small bowel obstruction(Confirmed) Active Non-Malaysian speaking patient(Confirmed) Active Hair loss(Confirmed) Active (Confirmed) Active Social History Social History Type Response Smoking Status Never (less than 100 in lifetime); Tobacco user in household: Yes entered on: 05/30/19 Sex
--- OUTSIDE RECORDS SUMMARY | 2023-11-11 23:41 | XMS_ITS | Continuity of Care Document ---
Author Name Unknown Organization [facility] Address [address] [address]- Care Team Providers Care Cut Off Saw Set Up Operator Name Role Phone Not on Staff, PCP Primary Care Physician Unavail able [facility] Date[facility]): [facility]23 - 03/25/23 [facility] [address] [address] Attending Physician: Frederic Domínguez Admitting Physician: Admtr, Frederic Referring Physician: Admtr, Ar8 Allergies, Adverse Reactions, Alerts No Known Allergies Immunizations Given and Recorded Vaccine Date Status Refusal Reason tetanus/diphtheria/pertussis, acel(Tdap) 10/13/19 Given influenza virus vaccine, inactivated 1 08/25/19 Gi lyle 1Result Comment: [facility] 18953-672-58 Medications Tylenol 325 mg oral tablet 650 mg, 2, tablet, By Mouth, Every 6 hours, PRN, # 60 tablet, Refills 1, Tot. Refills 1, Maintenance, for pain, 12/27/19 12:50:00 EDT, Route to Pharmacy Electronically, [facility]/pharmacy #[id number], 154, cm, 12/27/19 8:19:00 EDT, Height, 97.27, kg, 12/25/19 8:3... Start Date: 12/27/19 Status: Ordered Vitamin D3 2000 intl units oral capsule 1 capsule = 50 mcg, By Mouth, Daily, # 60 capsule, 11 Refills, Maintenance, 02/23/23 9:44:00 EDT, Capsule, [facility]/pharmacy #[id number], Partial fill upon patient request if the prescription is for a schedule II opioid drug., 155, cm, 02/23/23 8:40:00 EDT, Heig... Start Date: 02/23/23 Status: Ordered Natalie 3 mg-0.03 mg oral tablet 1 tablet, By Mouth, Daily, # 84 tablet, 4 Refills, Maintenance, 12/11/22 12:09:00 EST, Tablet, [facility]/pharmacy #[id number], Partial fill upon patient request if the [...] Active H/O small bowel obstruction Confirmed Active Non-Sri Lankan speaking patient Confirmed Active Hair loss Confirmed Active Obese class I Confirmed Active Confirmed Active Social History Social History Type Response Smoking Status Never (less than 100 in lifetime); Tobacco user in household: Yes entered on: 05/30/19 Sex Patient Care team information Care Team Personnel Name: Not on Staff, PCP Position: S Physician (General Medicine) Member Role: PCP Care Team Related Persons Name: TRINH EUCEDA Address: Address: [address] [place] [address] [place] Name: ROMAIN ANGEL Address: [address] [place] [address]
--- OUTSIDE RECORDS SUMMARY | 2023-11-11 23:41 | XMS_ITS | Continuity of Care Document ---
Author Name Unknown Organization [facility] Address [address] [place] [address]- Care Team Providers Care Car Stereo Installer Name Role Phone Not on Staff, PCP Primary Care Physician Unavail able [facility] Date[facility]): 05/22/20 - 06/21/20 [facility] [address] [facility] [facility] [place] [address]- [facility] Allergies, Adverse Reactions, Alerts Substance Reaction Severity Status NKA Active Immunizations Given and Recorded Vaccine Date Status Refusal Reason tetanus/diphtheria/pertussis, acel(Tdap) 10/13/19 Given influenza virus vaccine, inactivated 1 08/25/19 Gi lyle 1Result Comment: [facility] 56881-444-13 Medications Colace sodium 100 mg oral capsule 100 mg, 1, capsule, By Mouth, 2 times a day, PRN, # 60 capsule, Refills 1, Tot. Refills 1, Maintenance, for constipation, 12/27/19 12:50:00 EDT, [id number], 154, cm, 12/27/19 8:19:00 EDT, Height, 97.27, kg, 03... Start Date: 12/27/19 Status: Ordered ibuprofen 600 mg oral tablet 600 mg, 1, tablet, By Mouth, Every 6 hours, # 40 tablet, Refills 1, Tot. Refills 1, Maintenance, 12/27/19 12:50:00 EDT, Route to Pharmacy Electronically, [facility]/pharmacy #2339, 154, cm, 12/27/19 8:19:00EDT, Height, 97.27, kg, 12/25/19 8:31:00 EDT, Dry W... Start Date: 12/27/19 Status: Ordered Multivitamins with Folic Acid 1 mg oral tablet 1 tablet, By Mouth, Daily, # 100 tablet, 1 Refills, Maintenance, 12/27/19 12:50:00 EDT, Tablet, [facility]/pharmacy #2339, 1 tablet By Mouth Daily, 154, cm, 12/27/19 8:19:00 EDT, Height, 97.27, kg, 208:31:00 EDT, Dry Weight Start Date: 12/27/19 Status: Ordered Tylenol 325 mg oral tablet 650 mg, 2, tablet, By Mouth, Every 6 hours, PRN, # 60 tablet, Refills 1, Tot. Refills 1, Maintenance, for pain, 12/27/19 12:50:00 EDT, Route to Pharmacy Electronically, [facility]/pharmacy #[id number], 154, cm, 12/27/19 8:19:00 EDT, Height, 97.27, kg, 12/25/19 8:3... Start Date: 12/27/19 Status: Ordered Xulane 150 mcg-35 mcg/24 hr transdermal film, extended release See Instructions, 1 patch Topically, # 3 each, 11 Refills, Maintenance, 04/16/20 13:12:00 EDT, [facility]/pharmacy #2339, 1 patch Topically, 154, cm, 04/16/20 13:02:00 EDT, Height, 81.66, kg, 04/16/20 13:02:00 EDT, Dry Weight Start Date: 04/16/20 Status: Ordered Problem List Condition Effective Dates Status Health Status Inform ant Anemia(Confirmed) Active BMI 27.0-27.9,adult(Confirmed) Active Elevated blood pressure reading(Confirmed) Active Exposure to hepatitis C(Confirmed) Active H/O section(Confirmed) Active H/O small bowel obstruction(Confirmed) Active Non-Mongolian speaking patient(Confirmed) Active Hair loss(Confirmed) Active (Confirmed) Active Social History Social History Type Response Smoking Status Never (less than 100 in lifetime); Tobacco user in household: Yes entered on: 05/30/19 Sex
--- OUTSIDE RECORDS SUMMARY | 2023-11-11 23:41 | XMS_ITS | Continuity of Care Document ---
Author Name Unknown Organization [facility] Address Unknown Care Team Providers Care Roofing Technician Name Role Phone Not on Staff, PCP Primary Care Physician Unavail able En[facility] Date(s): 11/26/21 - 01/11/22 [facility] Attending Physician: Not on Staff, Attending MD Referring Physician: Gregoria Pfeiffer CNM Allergies, Adverse Reactions, Alerts No Known Allergies Immunizations Given and Recorded Vaccine Date Status Refusal Reason tetanus/diphtheria/pertussis, acel(Tdap) 10/13/19 Given influenza virus vaccine, inactivated 1 08/25/19 Gi lyle 1Result Comment: [facility] 07624-960-07 Medications Colace sodium 100 mg oral capsule 100 mg, 1, capsule, By Mouth, 2 times a day, PRN, # 60 capsule, Refills 1, Tot. Refills 1, Maintenance, for constipation, 12/27/19 12:50:00 EDT, Route to Pharmacy Electronically, [facility]/pharmacy #[id number], 154, cm, 12/27/19 8:19:00 EDT, Height, 97.27, kg, 03... Start Date: 12/27/19 Status: Ordered ferrous sulfate 325 mg oral tablet See Instructions, TAKE 1 TABLET BY MOUTH TWICE A DAY, # 60 tablet, 1 Refills, Maintenance, [id number], 154, cm, 04/16/20 13:02:00 EDT, Height, 81.66, kg, 04/16/20 13:02:00 EDT, Dry Weight Start Date: 01/03/21 Status: Ordered ibuprofen 600 mg oral tablet 600 mg, 1, tablet, By Mouth, Every 6 hours, # 40 tablet, Refills 1, Tot. Refills 1, Maintenance, 12/27/19 12:50:00 EDT, Route to Pharmacy Electronically, [facility]/pharmacy #[id number], 154, cm, 12/27/19 8:19:00EDT, Height, 97.27, [...] 1 Refills, Maintenance, 12/27/19 12:50:00 EDT, Tablet, [facility]/pharmacy #2339, 1 tablet By Mouth Daily, 154, cm, 12/27/19 8:19:00 EDT, Height, 97.27, kg, :31:00 EDT, Dry Weight Start Date: 12/27/19 Status: Ordered Tylenol 325 mg oral tablet 650 mg, 2, tablet, By Mouth, Every 6 hours, PRN, # 60 tablet, Refills 1, Tot. Refills 1, Maintenance, for pain, 12/27/19 12:50:00 EDT, Route to Pharmacy Electronically, [facility]/pharmacy #[id number], 154, cm, 12/27/19 8:19:00 EDT, Height, 97.27, kg, 12/25/19 8:3... Start Date: 12/27/19 Status: Ordered Problem List Condition Effective Dates Status Health Status Inform ant Anemia(Confirmed) Active BMI 27.0-27.9,adult(Confirmed) Active Elevated blood pressure reading(Confirmed) Active Exposure to hepatitis C(Confirmed) Active H/O section(Confirmed) Active H/O small bowel obstruction(Confirmed) Active Non-Belarusian speaking patient(Confirmed) Active Hair loss(Confirmed) Active Obese class I(Confirmed) Active (Confirmed) Active Social History Social History Type Response Smoking Status Never (less than 100 in lifetime); Tobacco user in household: Yes entered on: 05/30/19 Sex
--- OUTSIDE RECORDS SUMMARY | 2023-11-11 23:41 | XMS_ITS | Continuity of Care Document ---
Author Name Unknown [facility] Address [address] [address]- Care Team Providers Care Brim Greaser Operator Name Role Phone Not on Staff, PCP Primary Care Physician Unavail able [facility] Date[facility]s): 06/29/23 - 07/29/23 [facility] [address] [place] [address] Allergies, Adverse Reactions, Alerts No Known Allergies Immunizations Given and Recorded Vaccine Date Status Refusal Reason tetanus/diphtheria/pertussis, acel(Tdap) 10/13/19 Given influenza virus vaccine, inactivated 1 08/25/19 Gi lyle 1Result Comment: [facility] 43223-519-06 Medications Tylenol 325 mg oral tablet 650 mg, 2, tablet, By Mouth, Every 6 hours, PRN, # 60 tablet, Refills 1, Tot. Refills 1, Maintenance, for pain, 12/27/19 12:50:00 EDT, Route to Pharmacy Electronically, [facility]/pharmacy #2337, 154, cm, 12/27/19 8:19:00 EDT, Height, 97.27, kg, 12/25/19 8:3... Start Date: 12/27/19 Status: Ordered Vitamin D3 2000 intl units oral capsule 1 capsule = 50 mcg, By Mouth, Daily, # 60 capsule, 11 Refills, Maintenance, 02/23/23 9:44:00 EDT, Capsule, [facility]/pharmacy #2339, Partial fill upon patient request if the prescription is for a schedule II opioid drug., 155, cm, 02/23/23 8:40:00 EDT, Heig... Start Date: 02/23/23 Status: Ordered Natalie 3 mg-0.03 mg oral tablet 1 tablet, By Mouth, Daily, # 84 tablet, 4 Refills, Maintenance, 12/11/22 12:09:00 EST, Tablet, [id number], Partial fill upon patient request if the [...] Active H/O small bowel obstruction Confirmed Active Non-Mongolian speaking patient Confirmed Active Hair loss Confirmed Active Obese class I Confirmed Active Confirmed Active Social History Social History Type Response Smoking Status Never (less than 100 in lifetime); Tobacco user in household: Yes entered on: 05/30/19 Sex Patient Care team information Care Team Personnel Name: Not on Staff, PCP Position: S Physician (General Medicine) Member Role: PCP Care Team Related Persons Name: JULESAnayJANICESIRISHA CARIASSHAR Address: Address: [address] [place] [address] [place] Name: ROMAIN ANGEL Address: [address] [place] [address]
--- OUTSIDE RECORDS SUMMARY | 2023-11-11 23:41 | XMS_ITS | Continuity of Care Document ---
Author Name Unknown Organization [facility] Address [address] [place] [address]- Care Team Providers Care Building Supervisor Name Role Phone Not on Staff, PCP Primary Care Physician Unavail able [facility] Date(s): 01/03/21 - 02/02/[address] [address]- Allergies, Adverse Reactions, Alerts Substance Reaction Severity Status NKA Active Immunizations Given and Recorded Vaccine Date Status Refusal Reason tetanus/diphtheria/pertussis, acel(Tdap) 10/13/19 Given influenza virus vaccine, inactivated 1 08/25/19 Gi lyle 1Result Comment: [facility] [id number] Medications Colace sodium 100 mg oral capsule 100 mg, 1, capsule, By Mouth, 2 times a day, PRN, # 60 capsule, Refills 1, Tot. Refills 1, Maintenance, for constipation, 12/27/19 12:50:00 EDT, Route to Pharmacy Electronically, [facility]/pharmacy #[id number], 154, cm, 12/27/19 8:19:00 EDT, Height, 97.27, kg, 03... Start Date: 12/27/19 Status: Ordered ferrous sulfate 325 mg oral tablet See Instructions, TAKE 1 TABLET BY MOUTH TWICE A DAY, # 60 tablet, 1 Refills, Maintenance, [facility], 154, cm, 04/16/20 13:02:00 EDT, Height, 81.66, kg, 04/16/20 13:02:00 EDT, Dry Weight Start Date: 01/03/21 Status: Ordered ibuprofen 600 mg oral tablet 600 mg, 1, tablet, By Mouth, Every 6 hours, # 40 tablet, Refills 1, Tot. Refills 1, Maintenance, 12/27/19 12:50:00 EDT, [id number], 154, cm, 12/27/19 8:19:00EDT, Height, 97.27, kg, 12/25/19 8:31:00 EDT, Dry W... Start Date: 12/27/19 Status: Ordered Multivitamins with Folic Acid 1 mg oral tablet 1 tablet, By Mouth, Daily, # 100 tablet, 1 Refills, Maintenance, 12/27/19 12:50:00 EDT, Tablet, [facility]/pharmacy #2339, 1 tablet By Mouth Daily, 154, cm, 12/27/19 8:19:00 EDT, Height, 97.27, kg, 208:31:00 EDT, Dry Weight Start Date: 12/27/19 Status: Ordered Tylenol 325 mg oral tablet 650 mg, 2, tablet, By Mouth, Every 6 hours, PRN, # 60 tablet, Refills 1, Tot. Refills 1, Maintenance, for pain, 12/27/19 12:50:00 EDT, [id number], 154, cm, 12/27/19 8:19:00 EDT, Height, 97.27, kg, 12/25/19 8:3... Start Date: 12/27/19 Status: Ordered Xulane 150 mcg-35 mcg/24 hr transdermal film, extended release See Instructions, 1 patch Topically, # 3 each, 11 Refills, Maintenance, 04/16/20 13:12:00 EDT, [facility]/pharmacy #[id number], 1 patch Topically, 154, cm, 04/16/20 13:02:00 EDT, Height, 81.66, kg, 04/16/20 13:02:00 EDT, Dry Weight Start Date: 04/16/20 Status: Ordered Problem List Condition Effective Dates Status Health Status Inform ant Anemia(Confirmed) Active BMI 27.0-27.9,adult(Confirmed) Active Elevated blood pressure reading(Confirmed) Active Exposure to hepatitis C(Confirmed) Active H/O section(Confirmed) Active H/O small bowel obstruction(Confirmed) Active Non-Spanish speaking patient(Confirmed) Active Hair loss(Confirmed) Active (Confirmed) Active Social History Social History Type Response Smoking Status Never (less than 100 in lifetime); Tobacco user in household: Yes entered on: 05/30/19 Sex
--- OUTSIDE RECORDS SUMMARY | 2023-11-11 23:41 | XMS_ITS | Continuity of Care Document ---
Author Name Unknown Organization [facility] Address [address] [place] [address]- Care Team Providers Care Propulsion Systems Engineer Name Role Phone Not on Staff, PCP Primary Care Physician Unavail able [facility] Date[facility]s): 12/18/19 - 01/20/20 [facility] and [address] [address]- [facility] Attending Physician: Not on Staff, Attending MD Referring Physician: Gregoria Pfeiffer CNM Allergies, Adverse Reactions, Alerts Substance Reaction Severity Status NKA Active Immunizations Given and Recorded Vaccine Date Status Refusal Reason tetanus/diphtheria/pertussis, acel(Tdap) 10/13/19 Given influenza virus vaccine, inactivated 1 08/25/19 Gi lyle 1Result Comment: [facility] 51382-596-65 Medications clotrimazole 1% topical cream 1 application, Topically, 2 times a day, apply twice a day, # 24 Gm, 0 Refills, Maintenance, 11/10/19 16:39:00 EST, Cream, [facility], 1 application Topically 2 times a day,Instr:apply twice a day, 154, cm, 11/10/19 16:27:00 EST, Height,... Start Date: 11/10/19 Status: Ordered Colace sodium 100 mg oral capsule 100 mg, 1, capsule, By Mouth, 2 times a day, PRN, # 60 capsule, Refills 1, Tot. Refills 1, Maintenance, for constipation, 12/27/19 12:50:00 EDT, Route to Pharmacy Electronically, [facility]/pharmacy #[id number], 154, cm, 12/27/19 8:19:00 EDT, Height, 97.27, kg, 03... Start Date: 12/27/19 Status: Ordered ferrous sulfate 325 mg oral tablet 1 tablet = 325 mg, By Mouth, 2 times a day, # 60 tablet, 1 Refills, Maintenance, 12/27/19 12:50:00 EDT, Tablet, [facility]/pharmacy #2339, 154, cm, 12/27/19 8:19:00 EDT, Height, 97.27, kg, 12/25/19 8:31:00 EDT, Dry Weight Start Date: 12/27/19 Status: Ordered ibuprofen 600 mg oral tablet 600 mg, 1, tablet, By Mouth, Every 6 hours, # 40 tablet, Refills 1, Tot. Refills 1, Maintenance, 12/27/19 12:50:00 EDT, Route to Pharmacy Electronically, [facility]/pharmacy #2339, 154, cm, 12/27/19 8:19:00EDT, Height, 97.27, kg, 12/25/19 8:31:00 EDT, Dry W... Start Date: 12/27/19 Status: Ordered oxyCODONE 5 mg oral tablet 5 mg, 1, tablet, By Mouth, Every 6 hours, PRN, for post-op pain, # 20 tablet, Refills 0, Tot. Refills 0, Maintenance, for pain, 12/27/19 12:50:00 EDT, Route to Pharmacy Electronically, [facility]/pharmacy #2339, Partial fill upon patient request, 154, cm, 03... Start Date: 12/27/19 Status: Ordered Multivitamins with Folic Acid 1 mg oral tablet 1 tablet, By Mouth, Daily, # 100 tablet, 1 Refills, Maintenance, 12/27/19 12:50:00 EDT, Tablet, [facility]/pharmacy #2339, 1 tablet By Mouth Daily, [...] mL, 0 Refills, Maintenance, 12/04/19 16:39:00 EST, [id number], 1 applicator Topically Daily,Instr:Apply to forearm and rinse after 5 minutes, 154, cm, 0... Start Date: 12/04/19 Status: Ordered Tylenol 325 mg oral tablet 650 mg, 2, tablet, By Mouth, Every 6 hours, PRN, # 60 tablet, Refills 1, Tot. Refills 1, Maintenance, for pain, 12/27/19 12:50:00 EDT, Route to Pharmacy Electronically, [facility]/pharmacy #2339, 154, cm, 12/27/19 8:19:00 EDT, Height, 97.27, kg, 12/25/19 8:3... Start Date: 12/27/19 Status: Ordered Problem List Condition Effective Dates Status Health Status Inform ant Anemia(Confirmed) Active BMI 27.0-27.9,adult(Confirmed) Active Elevated blood pressure reading(Confirmed) Active Exposure to hepatitis C(Confirmed) Active H/O section(Confirmed) Active H/O small bowel obstruction(Confirmed) Active Non-Botswanan speaking patient(Confirmed) Active Hair loss(Confirmed) Active (Confirmed) Active Social History Social History Type Response Smoking Status Never (less than 100 in lifetime); Tobacco user in household: Yes entered on: 05/30/19 Sex
--- OUTSIDE RECORDS SUMMARY | 2023-11-11 23:41 | XMS_ITS | Continuity of Care Document ---
Author Name Unknown Organization [facility] Address [address] [place] [id number]- Care Team Providers Care Data Visualization Developer Name Role Phone Not on Staff, PCP Primary Care Physician Unavail able [facility]): 10/[facility]19 - 10/02/[address] [address]- [facility] Attending Physician: Not on Staff, Attending MD Allergies, Adverse Reactions, Alerts Substance Reaction Severity Status NKA Active Immunizations Given and Recorded Vaccine Date Status Refusal Reason influenza virus vaccine, inactivated 1 08/25/19 Gi lyle 1Result Comment: [facility] 03547-508-56 Medications aspirin 81 mg oral tablet 1 tablet = 81 mg, By Mouth, Daily, # 30 tablet, 9 Refills, Maintenance, 06/28/19 18:58:47 EDT, Tablet Start Date: 06/28/19 Stop Date: 04/23/20 Status: Ordered ferrous sulfate 325 mg oral enteric coated tablet 325 mg, 1, tablet, By Mouth, Daily, may take with food to minimize abdominal discomfort, # 30 tablet, Refills 11, Tot. Refills 11, Maintenance, 06/28/19 15:45:56 EDT, Route to Pharmacy Electronically, [facility]-[id number], [facility] [address] [place] [address] Start Date: 06/28/19 Stop Date: 06/22/20 Status: Ordered Plus Iron oral tablet 1 tablet, By Mouth, Daily, # 30 tablet, 11 Refills, Maintenance, 06/28/19 16:33:37 EDT, 1 tablet ByMouth Daily,x30 days Start Date: 06/28/19 Stop Date: 06/22/20 Status: Ordered Tums 500 mg oral tablet, chewable 500 mg, 1, tablet, Chew, 2 times a day, PRN, # 60 tablet, Refills 1, Tot. Refills 1, Maintenance, as needed for dyspepsia, 09/22/19 16:55:31 EST, Route to Pharmacy Electronically, [facility] [address], 154, cm, 09/22/19 16:22:34 EST, Height, 69, k... Start Date: 09/22/19 Status: Ordered Problem List Condition Effective Dates Status Health Status Inform ant Hair loss(Confirmed) Active Social History Social History Type Response Smoking Status Never (less than 100 in lifetime) entered on: 07/20/19 Sex
--- OUTSIDE RECORDS SUMMARY | 2023-11-11 23:41 | XMS_ITS | Continuity of Care Document ---
Author Name Unknown Organization [facility] Address Unknown Care Team Providers Care Ethnology Teacher Name Role Phone Not on Staff, PCP Primary Care Physician Unavail able Encounter [facility] Date(s): 07/03/21 - 08/02/21 [facility] Allergies, Adverse Reactions, Alerts Substance Reaction Severity Status NKA Active Immunizations Given and Recorded Vaccine Date Status Refusal Reason tetanus/diphtheria/pertussis, acel(Tdap) 10/13/19 Given influenza virus vaccine, inactivated 1 08/25/19 Gi lyle 1Result Comment: [facility] 24902-044-69 Medications Colace sodium 100 mg oral capsule 100 mg, 1, capsule, By Mouth, 2 times a day, PRN, # 60 capsule, Refills 1, Tot. Refills 1, Maintenance, for constipation, 12/27/19 12:50:00 EDT, [facility], [facility], cm, 12/27/19 8:19:00 EDT, Height, 97.27, kg, 03... Start Date: 12/27/19 Status: Ordered ferrous sulfate 325 mg oral tablet See Instructions, TAKE 1 TABLET BY MOUTH TWICE A DAY, # 60 tablet, 1 Refills, Maintenance, [facility], 154, cm, 04/16/20 13:02:00 EDT, Height, 81.66, kg, 04/16/20 13:02:00 EDT, Dry Weight Start Date: 01/03/21 Status: Ordered ibuprofen 600 mg oral tablet 600 mg, 1, tablet, By Mouth, Every 6 hours, # 40 tablet, Refills 1, Tot. Refills 1, Maintenance, 12/27/19 12:50:00 EDT, Route to Pharmacy Electronically, [facility]/pharmacy #2339, 154, cm, 12/27/19 8:19:00EDT, Height, [...] each, 1 Refills, Maintenance, 07/03/21 14:38:00 EDT, [facility]/pharmacy #2339, 1 patch Topically, 154, cm, 04/16/20 13:02:00 EDT, Height, 81.66, kg, 04/16/20 13:02:00 EDT, Dry Weight Start Date: 07/03/21 Status: Ordered Problem List Condition Effective Dates Status Health Status Inform ant Anemia(Confirmed) Active BMI 27.0-27.9,adult(Confirmed) Active Elevated blood pressure reading(Confirmed) Active Exposure to hepatitis C(Confirmed) Active H/O section(Confirmed) Active H/O small bowel obstruction(Confirmed) Active Non-Hebrew speaking patient(Confirmed) Active Hair loss(Confirmed) Active (Confirmed) Active Social History Social History Type Response Smoking Status Never (less than 100 in lifetime); Tobacco user in household: Yes entered on: 05/30/19 Sex
--- OUTSIDE RECORDS SUMMARY | 2023-11-11 23:41 | XMS_ITS | Continuity of Care Document ---
Author Name Unknown Organization [facility] ter Address [address] [place] [address]- Care Team Providers Care Steel Rule Die Maker Name Role Phone Not on Staff, PCP Primary Care Physician Unavail able [facility] Date[facility]s): 01/[facility]/20 - 01/08/[address] [address]- [facility] Discharge Disposition: Transferred to an intermediate care faci Attending Physician: Sundeep Burden MD Admitting Physician: Sundeep Burden MD Referring Physician: Not on Staff, Referring MD Allergies, Adverse Reactions, Alerts Substance Reaction Severity Status NKA Active Immunizations Given and Recorded Vaccine Date Status Refusal Reason tetanus/diphtheria/pertussis, acel(Tdap) 10/13/19 Given influenza virus vaccine, inactivated 1 08/25/19 Gi lyle 1Result Comment: [facility] 44012-620-28 Medications clotrimazole 1% topical cream 1 application, Topically, 2 times a day, apply twice a day, # 24 Gm, 0 Refills, Maintenance, 11/10/19 16:39:00 EST, Cream, [facility], 1 application Topically 2 times a day,Instr:apply twice a day, 154, cm, 11/10/19 16:27:00 EST, Height,... Start Date: 11/10/19 Status: Ordered Colace sodium 100 mg oral capsule 100 mg, 1, capsule, By Mouth, 2 times a day, PRN, # 60 capsule, Refills 1, Tot. Refills 1, Maintenance, for constipation, 12/27/19 12:50:00 EDT, Route to Pharmacy Electronically, [facility]/pharmacy #[id number], 154, cm, 12/27/19 8:19:00 EDT, Height, 97.27, kg, 03... Start Date: 12/27/19 Status: Ordered ferrous sulfate 325 mg oral tablet 1 tablet = 325 mg, By Mouth, 2 times a day, # 60 tablet, 1 Refills, Maintenance, 12/27/19 12:50:00 EDT, Tablet, [facility]/pharmacy #[id number], 154, cm, 12/27/19 8:19:00 EDT, Height, 97.27, kg, 12/25/19 8:31:00 EDT, Dry Weight Start Date: 12/27/19 Status: Ordered ibuprofen 600 mg oral tablet 600 mg, 1, tablet, By Mouth, Every 6 hours, # 40 tablet, Refills 1, Tot. Refills 1, Maintenance, 12/27/19 12:50:00 EDT, Route to Pharmacy Electronically, [facility]/pharmacy #[id number], 154, cm, 12/27/19 8:19:00EDT, Height, 97.27, kg, 12/25/19 8:31:00 EDT, Dry W... Start Date: 12/27/19 Status: Ordered oxyCODONE 5 mg oral tablet 5 mg, 1, tablet, By Mouth, Every 6 hours, PRN, for post-op pain, # 20 tablet, Refills 0, Tot. Refills 0, Maintenance, for pain, 12/27/19 12:50:00 EDT, Route to Pharmacy Electronically, [facility]/pharmacy #[id number], Partial fill upon patient request, 154, cm, 03... Start Date: 12/27/19 Status: Ordered Multivitamins with Folic Acid 1 mg oral tablet 1 tablet, By Mouth, Daily, # 100 tablet, 1 Refills, Maintenance, 12/27/19 12:50:00 EDT, Tablet, [facility]/pharmacy #[id number], 1 tablet By [...] mL, 0 Refills, Maintenance, 12/04/19 16:39:00 EST, [facility] #[id number], 1 applicator Topically Daily,Instr:Apply to forearm and rinse after 5 minutes, 154, cm, 0... Start Date: 12/04/19 Status: Ordered Tylenol 325 mg oral tablet 650 mg, 2, tablet, By Mouth, Every 6 hours, PRN, # 60 tablet, Refills 1, Tot. Refills 1, Maintenance, for pain, 12/27/19 12:50:00 EDT, Route to Pharmacy Electronically, [facility]/pharmacy #[id number], 154, cm, 12/27/19 8:19:00 EDT, Height, 97.27, kg, 12/25/19 8:3... Start Date: 12/27/19 Status: Ordered Problem List Condition Effective Dates Status Health Status Inform ant Anemia(Confirmed) Active BMI 27.0-27.9,adult(Confirmed) Active Elevated blood pressure reading(Confirmed) Active Exposure to hepatitis C(Confirmed) Active H/O section(Confirmed) Active H/O small bowel obstruction(Confirmed) Active Non-Romanian speaking patient(Confirmed) Active Hair loss(Confirmed) Active (Confirmed) Active Vital Signs Most recent to oldest [Reference Range]: 1 2 Weight 87.9 kg (01/08/20 12:00 PM) Oxygen Saturation [94-100 %] 100 % (01/08/20 12:00 PM) 99 % (01/08/20 11:50 AM) Pulse Rate [55-90 bpm] 73 bpm (01/08/20 12:00 PM) 79 bpm (01/08/20 11:50 AM) Blood Pressure [90-138/55-84 mm Hg] 134/ 88mm Hg (01/08/20 12:00 PM) Respiratory Rate [16-30 br/min] 18 br/mi n (01/08/20 12:00 PM) Temperature [96.8-100.4 DegF] 98.0 DegF (01/08/20 12:00 PM) Mode of Delivery (Oxygen) Room air (01/08/20 12:00 PM) Room air (01/08/20 11:50 AM) Blood pressure sites Arm, left (01/08/20 12:00 PM) Temperature Route Oral (01/08/20 12:00 PM) Dry Weight 87.9 kg (01/08/20 12:00 PM) Weight Obtained Via Standing scale (01/08/20 12:00 PM) Dry Weight Obtained Via Standing scale (01/08/20 12:00 PM) Social History Social History Type Response Smoking Status Never (less than 100 in lifetime); Tobacco user in household: Yes entered on: 05/30/19 Sex
--- OUTSIDE RECORDS SUMMARY | 2023-11-11 23:41 | XMS_ITS | Continuity of Care Document ---
Author Name Unknown Organization [facility] Address [address] [place] [address]- Care Team Providers Care Wet Wheeler Name Role Phone Not on Staff, PCP Primary Care Physician Unavail able [facility] Date[facility]s): 11/23/19 - 01/10/20 [facility] and [address] [address]- [facility] Attending Physician: Not on Staff, Attending MD Referring Physician: Eladia Benjamin CNM Allergies, Adverse Reactions, Alerts Substance Reaction Severity Status NKA Active Immunizations Given and Recorded Vaccine Date Status Refusal Reason tetanus/diphtheria/pertussis, acel(Tdap) 10/13/19 Given influenza virus vaccine, inactivated 1 08/25/19 Gi lyle 1Result Comment: [facility] [id number] Medications clotrimazole 1% topical cream 1 application, Topically, 2 times a day, apply twice a day, # 24 Gm, 0 Refills, Maintenance, 11/10/19 16:39:00 EST, Cream, [facility], 1 application Topically 2 times a day,Instr:apply twice a day, 154, cm, 11/10/19 16:27:00 EST, Height,... Start Date: 11/10/19 Status: Ordered Colace sodium 100 mg oral capsule 100 mg, 1, capsule, By Mouth, 2 times a day, PRN, # 60 capsule, Refills 1, Tot. Refills 1, Maintenance, for constipation, 12/27/19 12:50:00 EDT, Route to Pharmacy Electronically, [facility]/pharmacy #[id number], 154, cm, 12/27/19 8:19:00 EDT, Height, 97.27, kg, 03... Start Date: 12/27/19 Status: Ordered ferrous sulfate 325 mg oral tablet 1 tablet = 325 mg, By Mouth, 2 times a day, # 60 tablet, 1 Refills, Maintenance, 12/27/19 12:50:00 EDT, Tablet, [facility]/pharmacy #[id number], 154, cm, 12/27/19 8:19:00 EDT, Height, 97.27, kg, 12/25/19 8:31:00 EDT, Dry Weight Start Date: 12/27/19 Status: Ordered ibuprofen 600 mg oral tablet 600 mg, 1, tablet, By Mouth, Every 6 hours, # 40 tablet, Refills 1, Tot. Refills 1, Maintenance, 12/27/19 12:50:00 EDT, Route to Pharmacy Electronically, [facility]/pharmacy #[id number], 154, cm, 12/27/19 8:19:00EDT, Height, 97.27, kg, 12/25/19 8:31:00 EDT, Dry W... Start Date: 12/27/19 Status: Ordered oxyCODONE 5 mg oral tablet 5 mg, 1, tablet, By Mouth, Every 6 hours, PRN, for post-op pain, # 20 tablet, Refills 0, Tot. Refills 0, Maintenance, for pain, 12/27/19 12:50:00 EDT, Route to Pharmacy Electronically, [facility]/pharmacy #[id number], Partial fill upon patient request, 154, cm, 03... Start Date: 12/27/19 Status: Ordered Multivitamins with Folic Acid 1 mg oral tablet 1 tablet, By Mouth, Daily, # 100 tablet, 1 Refills, Maintenance, 12/27/19 12:50:00 EDT, Tablet, [facility]/pharmacy #[id number], 1 tablet By Mouth Daily, 154, cm, 12/27/19 8:19:00 EDT, Height, 97.27, kg, :31:00 EDT, Dry Weight Start Date: 12/27/19 Status: Ordered Plus Iron oral tablet 1 tablet, By Mouth, Daily, # 30 tablet, 11 Refills, Maintenance, 06/28/19 16:33:37 EDT, 1 tablet By[place] Daily,x30 days Start Date: 06/28/19 Stop Date: 06/22/20 Status: Ordered Selsun Blue Balanced Treatment 1% shampoo 1 applicator, Topically, Daily, Apply to forearm and rinse after 5 minutes, # 118 mL, 0 Refills, Maintenance, 12/04/19 16:39:00 EST, [facility] #[id number], 1 applicator Topically Daily,Instr:Apply to forearm and rinse after 5 minutes, 154, cm, 0... Start Date: 12/04/19 Status: Ordered Tylenol 325 mg oral tablet 650 mg, 2, tablet, By Mouth, Every 6 hours, PRN, # 60 tablet, Refills 1, Tot. Refills 1, Maintenance, for pain, 12/27/19 12:50:00 EDT, Route to Pharmacy Electronically, [facility]/pharmacy #[id number], 154, cm, 12/27/19 8:19:00 EDT, Height, 97.27, kg, 12/25/19 8:3... Start Date: 12/27/19 Status: Ordered Problem List Condition Effective Dates Status Health Status Inform ant Anemia(Confirmed) Active BMI 27.0-27.9,adult(Confirmed) Active Elevated blood pressure reading(Confirmed) Active Exposure to hepatitis C(Confirmed) Active H/O section(Confirmed) Active H/O small bowel obstruction(Confirmed) Active Non-Montserratian speaking patient(Confirmed) Active Hair loss(Confirmed) Active (Confirmed) Active Social History Social History Type Response Smoking Status Never (less than 100 in lifetime); Tobacco user in household: Yes entered on: 05/30/19 Sex
--- OUTSIDE RECORDS SUMMARY | 2023-11-11 23:41 | XMS_ITS | Continuity of Care Document ---
Author Name Unknown Organization [facility] Address [address] [place] [address], [address] [place] [address]- Care Team Providers Care Flying Instructor Name Role Phone Not on Staff, PCP Primary Care Physician Unavail able Encounter [facility] Date(s): 11/23/19 - 12/03/19 [facility] [address] [facility], [address] [place] [address]- Attending Physician: Frederic Domínguez Admitting Physician: Frederic Domínguez Referring Physician: Frederic Domínguez Referring Physician: Nidia Sinclair Allergies, Adverse Reactions, Alerts Substance Reaction Severity Status NKA Active Immunizations Given and Recorded Vaccine Date Status Refusal Reason tetanus/diphtheria/pertussis, acel(Tdap) 10/13/19 Given influenza virus vaccine, inactivated 1 08/25/19 Gi lyle 1Result Comment: [facility] 16303-703-59 Medications aspirin 81 mg oral tablet 1 [...] 06/28/19 15:45:56 EDT, Route to Pharmacy Electronically, MOPDP_[id number], [facility] [address] [facility] Start Date: 06/28/19 Stop Date: 06/22/20 Status: [...] 16:55:31 EST, Route to Pharmacy Electronically, [facility], 154, cm, 09/22/19 16:22:34 EST, Height, 69, k... Start Date: 09/22/19 Status: Ordered Problem List Condition Effective Dates Status Health Status Inform ant Anemia(Confirmed) Active BMI 27.0-27.9,adult(Confirmed) Active Elevated blood pressure reading(Confirmed) Active Exposure to hepatitis C(Confirmed) Active H/O section(Confirmed) Active H/O small bowel obstruction(Confirmed) Active Non-Citizen Of [place] speaking patient(Confirmed) Active Hair loss(Confirmed) Active (Confirmed) Active Social History Social History Type Response Smoking Status Never (less than 100 in lifetime) entered on: 07/20/19 Sex
--- OUTSIDE RECORDS SUMMARY | 2023-11-11 23:41 | XMS_ITS | Continuity of Care Document ---
Author Name Unknown Organization [facility] ter Address [address] [place] [address]- Care Team Providers Care Dye Mixer Name Role Phone Not on Staff, PCP Primary Care Physician Unavail able [facility] Date(s): 01/08/20 - 01/08/[address] [address]- [facility] Discharge Disposition: A-D/C Home Attending Physician: Lg Forman MD Admitting Physician: Lg Forman MD Referring Physician: Lg Forman MD Allergies, Adverse Reactions, Alerts Substance Reaction Severity Status NKA Active Immunizations Given and Recorded Vaccine Date Status Refusal Reason tetanus/diphtheria/pertussis, acel(Tdap) 10/13/19 Given influenza virus vaccine, inactivated 1 08/25/19 Gi lyle 1Result Comment: [facility] 98455-919-54 Medications clotrimazole 1% topical cream 1 application, Topically, 2 times a day, apply twice a day, # 24 Gm, 0 Refills, Maintenance, 11/10/19 16:39:00 EST, Cream, [facility], 1 application Topically 2 times a day,Instr:apply twice a day, 154, cm, 11/10/19 16:27:00 EST, Height,... Start Date: 11/10/19 Status: Ordered Colace sodium 100 mg oral capsule 100 mg, 1, capsule, By Mouth, 2 times a day, PRN, # 60 capsule, Refills 1, Tot. Refills 1, Maintenance, for constipation, 12/27/19 12:50:00 EDT, Route to Pharmacy Electronically, [facility]/pharmacy #[id number], 154, cm, 12/27/19 8:19:00 EDT, Height, 97.27, kg, 03... Start Date: 12/27/19 Status: Ordered ferrous sulfate 325 mg oral tablet 1 tablet = 325 mg, By Mouth, 2 times a day, # 60 tablet, 1 Refills, Maintenance, 12/27/19 12:50:00 EDT, Tablet, [facility]/pharmacy #[id number], 154, cm, 12/27/19 8:19:00 EDT, Height, 97.27, kg, 12/25/19 8:31:00 EDT, Dry Weight Start Date: 12/27/19 Status: Ordered ibuprofen 600 mg oral tablet 600 mg, 1, tablet, By Mouth, Every 6 hours, # 40 tablet, Refills 1, Tot. Refills 1, Maintenance, 12/27/19 12:50:00 EDT, Route to Pharmacy Electronically, [facility]/pharmacy #[id number], 154, cm, 12/27/19 8:19:00EDT, Height, 97.27, kg, 12/25/19 8:31:00 EDT, Dry W... Start Date: 12/27/19 Status: Ordered oxyCODONE 5 mg oral tablet 5 mg, 1, tablet, By Mouth, Every 6 hours, PRN, for post-op pain, # 20 tablet, Refills 0, Tot. Refills 0, Maintenance, for pain, 12/27/19 12:50:00 EDT, Route to Pharmacy Electronically, [facility]/pharmacy #[id number], Partial fill upon patient request, 154, cm, 03... Start Date: 12/27/19 Status: Ordered Multivitamins with Folic Acid 1 mg oral tablet 1 tablet, By Mouth, Daily, # 100 tablet, 1 Refills, Maintenance, 12/27/19 12:50:00 EDT, Tablet, [facility]/pharmacy #[id number], 1 tablet By Mouth Daily, 154, cm, 12/27/19 8:19:00 EDT, Height, 97.27, kg, :31:00 EDT, Dry Weight Start Date: 12/27/19 Status: Ordered Plus Iron oral tablet 1 tablet, By Mouth, Daily, # 30 tablet, 11 Refills, Maintenance, 06/28/19 16:33:37 EDT, 1 tablet ByCouth Daily,x30 days Start Date: 9/18/19 Stop Date: 06/22/20 Status: Ordered Selsun Blue Balanced Treatment 1% shampoo 1 applicator, Topically, Daily, Apply to forearm and rinse after 5 minutes, # 118 mL, 0 Refills, Maintenance, 12/04/19 16:39:00 EST, [facility] #[id number], 1 applicator Topically Daily,Instr:Apply to forearm and rinse after 5 minutes, 154, cm, 0... Start Date: 12/04/19 Status: Ordered Tylenol 325 mg oral tablet 650 mg, 2, tablet, By Mouth, Every 6 hours, PRN, # 60 tablet, Refills 1, Tot. Refills 1, Maintenance, for pain, 12/27/19 12:50:00 EDT, Route to Pharmacy Electronically, [facility]/pharmacy #[id number], 154, cm, 12/27/19 8:19:00 EDT, Height, 97.27, kg, 12/25/19 8:3... Start Date: 12/27/19 Status: Ordered Problem List Condition Effective Dates Status Health Status Inform ant Anemia(Confirmed) Active BMI 27.0-27.9,adult(Confirmed) Active Elevated blood pressure reading(Confirmed) Active Exposure to hepatitis C(Confirmed) Active H/O section(Confirmed) Active H/O small bowel obstruction(Confirmed) Active Non-Northern Irish speaking patient(Confirmed) Active Hair loss(Confirmed) Active (Confirmed) Active Vital Signs Most recent to oldest [Reference Range]: 1 Weight 87.7 kg (01/08/20 12:25 PM) Oxygen Saturation [94-100 %] 100 % (01/08/20 12:25 PM) Pulse Rate [55-90 bpm] 80 bpm (01/08/20 12:25 PM) Blood Pressure [90-138/55-84 mm Hg] 133/ 72mm Hg (01/08/20 12:25 PM) Respiratory Rate [16-30 br/min] 18 br/mi n (01/08/20 12:25 PM) Temperature [96.8-100.4 DegF] 98.6 DegF (01/08/20 12:25 PM) Mode of Delivery (Oxygen) Room air (01/08/20 12:25 PM) Blood pressure sites Arm, right 1 (01/08/20 12:25 PM) Temperature Route Oral (01/08/20 12:25 PM) Weight Obtained Via Standing scale (01/08/20 12:25 PM) 1Result Comment: right upper arm measured 38 cm Social History Social History Type Response Smoking Status Never (less than 100 in lifetime); Tobacco user in household: Yes entered on: 05/30/19 Sex
--- OUTSIDE RECORDS SUMMARY | 2023-11-11 23:41 | XMS_ITS | Continuity of Care Document ---
Author Name Unknown Organization [facility] Address [address] [address]- Care Team Providers Care Installer Metal Flooring Name Role Phone Not on Staff, PCP Primary Care Physician Unavail able [facility] Date[facility]s): 06[facility]23 - 07/29/[address] [facility] [address] [address] Attending Physician: Frederic Domínguez Admitting Physician: Admtr, Ar8 Referring Physician: Admtr, Ar8 Allergies, Adverse Reactions, Alerts No Known Allergies Immunizations Given and Recorded Vaccine Date Status Refusal Reason tetanus/diphtheria/pertussis, acel(Tdap) 10/13/19 Given influenza virus vaccine, inactivated 1 08/25/19 Gi lyle 1Result Comment: [facility] [id number] Medications Tylenol 325 mg oral tablet 650 mg, 2, tablet, By Mouth, Every 6 hours, PRN, # 60 tablet, Refills 1, Tot. Refills 1, Maintenance, for pain, 12/27/19 12:50:00 EDT, Route to Pharmacy Electronically, [facility]/pharmacy #233, 154, cm, 12/27/19 8:19:00 EDT, Height, 97.27, kg, 12/25/19 8:3... Start Date: 12/27/19 Status: Ordered Vitamin D3 2000 intl units oral capsule 1 capsule = 50 mcg, By Mouth, Daily, # 60 capsule, 11 Refills, Maintenance, 02/23/23 9:44:00 EDT, Capsule, [facility]/pharmacy #[id number], Partial fill upon patient request if the prescription is for a schedule II opioid drug., 155, cm, 02/23/23 8:40:00 EDT, Heig... Start Date: 02/23/23 Status: Ordered Natalie 3 mg-0.03 mg oral tablet 1 tablet, By Mouth, Daily, # 84 tablet, 4 Refills, Maintenance, 12/11/22 12:09:00 EST, Tablet, [facility]/pharmacy #[id number], Partial fill upon patient request if the [...] Active H/O small bowel obstruction Confirmed Active Non-Rwandan speaking patient Confirmed Active Hair loss Confirmed [...] Name: TRINH EUCEDA Address: Address: home [address] [place] [address] [place] Name: ROMAIN ANGEL Address: home [address] [place] [address]
--- OUTSIDE RECORDS SUMMARY | 2023-11-11 23:41 | XMS_ITS | Continuity of Care Document ---
Author Name Unknown Organization [facility] Address [address] [place] [address]- Care Team Providers Care Project Management Professional Name Role Phone Not on Staff, PCP Primary Care Physician Unavail able [facility] Date[facility]s): 11[facility]10/19 - 11/20/19 [facility] [address] [place] [address]- [facility] Attending Physician: Frederic Domínguez Admitting Physician: Frederic Domínguez Referring Physician: AdmtrFrederic Allergies, Adverse Reactions, Alerts Substance Reaction Severity Status NKA Active Immunizations Given and Recorded Vaccine Date Status Refusal Reason tetanus/diphtheria/pertussis, acel(Tdap) 10/13/19 Given influenza virus vaccine, inactivated 1 08/25/19 Gi lyle 1Result Comment: [facility] [id number] Medications aspirin 81 mg oral tablet 1 [...] 06/28/19 15:45:56 EDT, Route to Pharmacy Electronically, NCPDP_[id number], [facility] [address] [facility] Start Date: 06/28/19 Stop Date: 06/22/20 Status: [...] 09/22/19 16:55:31 EST, Route to Pharmacy Electronically, [facility] [address] [facility], 154, cm, 09/22/19 16:22:34 EST, Height, 69, k... Start Date: 09/22/19 Status: Ordered Problem List Condition Effective Dates Status Health Status Inform ant Hair loss(Confirmed) Active Social History Social History Type Response Smoking Status Never (less than 100 in lifetime) entered on: 07/20/19 Sex
--- OUTSIDE RECORDS SUMMARY | 2023-11-11 23:41 | XMS_ITS | Continuity of Care Document ---
Author Name Unknown Organization [facility] Address [address] [place] [address], [address] [place] [address]- Care Team Providers Care Mat Machine Tender Name Role Phone Not on Staff, PCP Primary Care Physician Unavail able Encounter [facility] Date(s): 11/23/19 - 11/30/19 [facility] [address] [facility], [address] [place] [address]- Attending Physician: Lg Forman MD Referring Physician: Stephani Vazquez CNM Allergies, Adverse Reactions, Alerts Substance Reaction Severity Status NKA Active Immunizations Given and Recorded Vaccine Date Status Refusal Reason tetanus/diphtheria/pertussis, acel(Tdap) 10/13/19 Given influenza virus vaccine, inactivated 1 08/25/19 Gi lyle 1Result Comment: [facility] [id number] Medications aspirin 81 mg oral tablet 1 [...] 06/28/19 15:45:56 EDT, Route to Pharmacy Electronically, [id number], [facility] [address] Start Date: 06/28/19 Stop Date: 06/22/20 [...] to Pharmacy Electronically, [facility] - [address], 154, cm, 09/22/19 16:22:34 EST, Height, 69, k... Start Date: 09/22/19 Status: Ordered Problem List Condition Effective Dates Status Health Status Inform ant Anemia(Confirmed) Active BMI 27.0-27.9,adult(Confirmed) Active Elevated blood pressure reading(Confirmed) Active Exposure to hepatitis C(Confirmed) Active H/O section(Confirmed) Active H/O small bowel obstruction(Confirmed) Active Non-Upper Sorbian speaking patient(Confirmed) Active Hair loss(Confirmed) Active (Confirmed) Active Vital Signs Most recent to oldest [Reference Range]: 1 Height 154 cm (11/23/19 10:39 AM) Weight 91.18 kg (11/23/19 10:39 AM) Body Mass Index [18.5-24.99] 38.45 *>HHI* (11/23/19 10:39 AM) Blood Pressure [90-138/55-84 mm Hg] 132/ 75mm Hg (11/23/19 10:39 AM) Blood pressure sites Arm, right (11/23/19 10:39 AM) Weight Obtained Via Standing scale (11/23/19 10:39 AM) Social History Social History Type Response Smoking Status Never (less than 100 in lifetime) entered on: 07/20/19 Sex
== END 2023-11-11 23:50 | disposition left against medical advice (07) ==
PROVIDERS: Emergency Provider Emergency Medicine
DX: R07.9 Chest pain, unspecified (principal); I10 Essential (primary) hypertension
CPT/HCPCS: 36415; 80048; 84484; 85025; 93005; 99283

== ENCOUNTER → 2023-11-11 21:31 | Outpatient (BNV) | payer MEDICAID, SELFPAY | PROVIDERS: Emergency Provider Emergency Medicine; Visit Provider Internal Medicine Cardiovascular Disease | DX: R07.9 Chest pain, unspecified (principal) | CPT/HCPCS: 93010 ==